=== PATIENT | male | born 1960 | race Caucasian/White ===

== ENCOUNTER → 2017-12-02 | Outpatient (CLI) | payer BC | LOC: BMCIMAGING 11:44 | PROVIDERS: ATTEND Family Medicine | DX: R06.02 Shortness of breath (principal) ==

== ENCOUNTER → 2017-12-03 | Outpatient (CLI) | payer BC | LOC: BMCIMAGING 08:38 | PROVIDERS: ATTEND Family Medicine | DX: J18.9 Pneumonia, unspecified organism (principal) ==